=== PATIENT | female | born 1985 | race Hispanic/Latino ===

== ENCOUNTER 2017-02-15 00:38 | Inpatient (IN) | payer OTHER ==
[2017-02-15 00:51] VITALS: BMI 27.7
[2017-02-15] MEDS: Lactated Ringer's 1,000 ML IV SCH ×2 (01:00→02:00)
[2017-02-15] MEDS ORDERED: Lidocaine 1% Inj (20ml) ONE (01:26)
--- NOTE | 2017-02-15 01:36 | OBADHP ---
Datetime: 02/15/2017 01:16 Pelvic Type - PN: Adequate Extremities - PN: Normal Abdomen - PN: Normal Back - PN: Normal Breast - PN: Normal Lungs - PN: Normal Heart - PN: Normal Thyroid - PN: Normal Neurologic - PN: Normal HEENT - PN: Normal General - PN: Normal Presentation-Admit: Vertex FHR - Baseline A Provider: 130 Membranes, Provider: Ruptured Comments, ACOG Physical Exam: HepB, RPR, HIV, neg Rubella immune GBS neg Gestation - Est Wks by US: 39 wk Pool Provider: Positive Vital Signs Provider: Reviewed; Within Normal Limits IP Chief Complaint: Uterine contractions; Suspected ruptured membranes; Maternal discomfort NICHD Variability Prov Fetus A: Moderate 6-25bpm NICHD Accel Fetus A IP Provider: [id number] FHR Category Provider Fetus A: Category I NICHD Decel Fetus A IP Provider: None Dilatation, Provider: 8 Effacement, Provider: 80 Station, Provider: 2 Genitourinary Exam: Normal DTRs - PN: Normal IP Adm Impression: Term, intrauterine IP Admit Plan: Admit to unit; Initiate labor protocol Datetime: 02/15/2017 01:05 Admit Comment, IP Provider: 31 y/o F , VINICIO 02/22/17 comes to the [facility] with CTX and SROM. CTX started around 7pm 1010 in [facility]. SROM at around 12:10am. - positive CTX/LOF/BV and FM PNC: no abnormal labs, Dr. Bobo , [facility] PMH: none PSH:none All: none Med: PNV SH: no alcohol use, smoking or drug use ROS: as per HPI, pt is very discomfortable VS: stable reassuring FHR CTX 8/80%/+2 A/P: 31 y/o F , VINICIO 02/22/17 comes to the [facility] with CTX and SROM. CTX started around 7pm 04/02 in [facility]. SROM at around 12:10am. - admit to unit - epidural - labs - monitor VS and dila - initiate NVD/labor protocol Case discussed with Dr. Graham --- Jocy Dotson, PGY-1 addendum pt seen _ examined by me. agree with assessment and plan.
--- NOTE | 2017-02-15 01:38 | OBADHP ---
Datetime: 02/15/2017 01:05 Presentation-Admit: Vertex
[2017-02-15 01:41] LABS: BASO # 0.1 K/uL (0.0-0.2); BASO % 0.7 % (0.0-2.0); EOS % 0.1 % (0.0-4.0); HEMATOCRIT 37.4 % (34.0-47.0); LYMPH # 1.9 K/uL (1.0-4.3); LYMPH % 14.2 % (20.0-40.0); MEAN CELL VOLUME 90.5 fl (81.0-99.0); MEAN CORPUSCULAR HGB CONC 33.2 g/dL (33.0-37.0); MEAN PLATELET VOLUME 10.3 fl (7.2-11.7); MONO # 0.7 K/uL (0.0-0.8); MONO % 5.1 % (0.0-10.0); NEUT # 10.9 K/uL (1.8-7.0); NEUT % 79.9 % (50.0-75.0); RED CELL DISTRIBUTION WIDTH 13.3 % (11.5-14.5); WHITE BLOOD COUNT 13.6 K/uL (4.8-10.8)
[2017-02-15] MEDS ORDERED: Bupivacaine HCl 0.25% PF (10 ml) Inj ONE (02:04)
[2017-02-15] MEDS ORDERED: Fentanyl/Bupivacaine HCl 250 ML EPI ONE (02:05)
[2017-02-15 02:46] VITALS: RESP 20; O2SAT 100
[2017-02-15] MEDS ORDERED: Oxycodone/Acetaminophen 5/325 mg Tab PO PRN ×3 (05:50→06:17)
[2017-02-15] MEDS ORDERED: Benzocaine/Menthol SPRAY TOP PRN ×2 (05:50→06:17)
--- NOTE | 2017-02-15 05:53 | OBDS ---
DELIVERY PERSONNEL Delivery Doctor: Martinez Ortiz MD Private Sector Executive: Stephanie Scott RN Anesthesiologist: Kelly Pulido MD Resident: STUART Dotson MATERNAL INFORMATION Delivery Anesthesia: Epidural Medications in Delivery: Pitocin Placenta Cultured: No Maternal Complications: None Provider Comments: Over intact perineum, of live female at 5:01am, Weight 3040gm, 9/9 AP GAR. Nuchal cord was noted and reduced. Right Anterior shoulder was delivered first after head delive red in a controlled manner followed by posterior arm and body. Infant was bulb suctioned nasopharyge ally and started crying spontaneously. Cord was clamped. umbilical cord was cut by father. Skin to skin was done with mother. Placenta was delivered intact spontaneously. Repair was done as above. EBL 200cc. patient and baby remained stable in --- Jocy Dotson, PGY-1 LABOR SUMMARY EDC: 02/22/2017 00:00 No. Babies in Womb: 1 Attempted: No Labor Anesthesia: Epidural LABOR INFORMATION Reason for Induction: Not Applicable Onset of Labor: 02/14/2017 22:00 Complete Dilatation: 02/15/2017 03:44 Oxytocin: Augmentation Group B Beta Strep: Negative Antibiotics # of Doses: 0 Steroids Given: None Reason Steroids Not Administered: Not Applicable MEMBRANES Membranes Rupture Method: Spontaneous Rupture of Membranes: 02/15/2017 00:00 Length of Rupture (hrs): 5.02 Amniotic Fluid Color: Clear Amniotic Fluid Amount: Moderate Amniotic Fluid Odor: Normal STAGES OF LABOR Stage 1 hrs: 5 Stage 1 min: 44 Stage 2 hrs: 1 Stage 2 min: 17 Stage 3 hrs: 0 Stage 3 min: 10 Total Time in Labor hrs: 7 Total Time in Labor min: 11 VAGINAL DELIVERY Laceration Extension: Second Degree Laceration Type: Vaginal Laceration Repair: Yes Laceration Repair Note: Repair of second degree perineal laceration with two 3-0 vicryl rapid. Initial Vag Sponge Count: 5 Final Vag Sponge Count: 5 Initial Vag Sharps Count: 2 Final Vag Sharps Count: 2 Sponge Count Correct: Yes Sharps Count Correct: Yes Count Comment: count correct CSECTION DELIVERY Primary Indication: N/A Secondary Indication: N/A CSection Incision: N/A BABY A INFORMATION Delivery Date/Time: 02/15/2017 05:01 Method of Delivery: Vaginal Born in Route : No : N/A Forceps: N/A Vacuum Extraction: N/A Shoulder Dystocia : No SHOULDER DYSTOCIA BABY A Delivery Date/Time: 02/15/2017 05:01 PRESENTATION/POSITION BABY A Presentation: Cephalic Cephalic Presentation: Vertex PLACENTA INFORMATION BABY A Placenta Delivery Time : 02/15/2017 05:11 Placenta Method of Delivery: Spontaneous Placenta Status: Delivered SCORES BABY A Heart Rate 1 min: >100 bpm Resp Effort 1 min: Good Cry Reflex Irritability 1 min: Cough or Sneeze or Pulls Away Muscle Tone 1 min: Active Motion Color 1 min: Body [place], Extremities Blue Resuscitation Effort 1 min: Tactile Stimulation SCORE 1 MIN: 9 Heart Rate 5 min: >100 bpm Resp Effort 5 min: Good Cry Reflex Irritability 5 min: Cough or Sneeze or Pulls Away Muscle Tone 5 min: Active Motion Color 5 min: Body [place], Extremities Blue Resuscitation Effort 5 min: N/A SCORE 5 MIN: 9 INFANT INFORMATION BABY A Gestational Age at Delivery: 39.0 Gestational Status: Term Outcome : Liveborn Infant Condition : Stable Infant Sex: Female IDENTIFICATION/MEDS BABY A ID Band Number: [id number] ID Band Location: Left Leg; Left Arm WEIGHT/LENGTH BABY A Infant Birthweight (gms): 3040 Infant Weight (lb): 6 Infant Weight (oz): 11 CORD INFORMATION BABY A No. Cord Vessels: 3 Nuchal Cord : Around Neck x1, Loose Nuchal Cord Other: n/a True Knot: n/a Cord pH Baby Arterial: n/a Infant Cord pH Baby Venous: n/a Cord Blood Taken: Yes Banking/Donate Info: n/a Suction: Mouth; Nose ASSESSMENT BABY A Infant Complications: None Physical Findings at Delivery: Within Normal Limits Infant Respirations: Appears Normal Charge Account Clerk/ALS Called : No Care By: Deion Transferred To: Remains with Mother
[2017-02-16 07:23] LABS: HEMATOCRIT 29.4 % (34.0-47.0); MEAN CORPUSCULAR HEMOGLOBIN 30.1 pg (27.0-31.0); MEAN CORPUSCULAR HGB CONC 32.7 g/dL (33.0-37.0); RED CELL DISTRIBUTION WIDTH 13.7 % (11.5-14.5); WHITE BLOOD COUNT 15.1 K/uL (4.8-10.8)
--- NOTE | 2017-02-16 08:06 | OBPPN ---
Datetime: 02/16/2017 08:04 PP Pain Prov: Within normal limits PP Nausea Prov: Denies PP Flatus Prov: Yes PP Breasts Prov: Not Done PP Heart Prov: Normal PP Lungs Prov: Normal PP Abdomen/Uterus Prov: Normal PP Lochia Prov: Not Done PP Vulva/Perineum Prov: Not Done PP CVA Tenderness Prov: Normal PP Extremities Prov: Normal PP Impression Prov: Normal progression PP Plan Prov: Continue present management PP Progress Note Prov: Patient overall reports some pelvic discomfort minimal lochia and breast-feed ing taking Motrin with some relief Vital signs stable afebrile Uterus firm below the umbilicus Extremities no Homans day #1 Bed to chair Regular diet Anticipate discharge in am Vital Signs Provider PP: Reviewed
[2017-02-16] MEDS: Oxycodone/Acetaminophen 5/325 mg Tab PO PRN ×2 (08:34→21:30)
--- NOTE | 2017-02-16 19:04 | OBPPN ---
Datetime: 02/16/2017 18:54 PP Progress Note Prov: Called by nurse reg elev bps: 130-150/80-91. s: denies h/a, scotomata, blurred va, ruq pain, n/v. pt states in general she has some anxiety wh ich was increased today with visits from family. she also states she gets more anxious when her bloo d pressure is being taken and she has been having difficulty and feeling anxious about this as well. o: pp platlet 175 I: PP elev bps no evidence of preeclamp. Most likely 2ndary to anxiety p: pt reassured about . pt d/w dr. garcia
[2017-02-17] MEDS: Oxycodone/Acetaminophen 5/325 mg Tab PO PRN (07:51)
--- NOTE | 2017-02-17 12:37 | OBDCSUM ---
Datetime: 02/17/2017 12:26 Discharged to, Provider: Home Follow up at, Provider: DR Jeramie Do Instr Activity: May Shower Disch Instr Diet: Regular Discharge Instructions, Provider: Routine instructions given Discharge Diagnosis, Provider: Term Delivered Discharge Time: 02/17/2017 13:00 Follow up in weeks, Provider: 4-6 weeks Disch Referrals: None Contraception discussed, Prov: Yes Disch Activity Restrictions: No lifting; No sexual activity; Nothing in vagina - [place], tampon s, douche Discharge Comment, Provider: Doing well cleared for discharge Contraception after Delivery: Undecided
[2017-02-17 19:03] VITALS: BP 139/93; PULSE 65; TEMP 98.1
== END 2017-02-17 12:55 | disposition home or self-care (01) | DRG 775 ==
LOC: H.EROB2 00:38 → H.L&D 01:11 → H.OB/GYN 09:07
PROVIDERS: ADMIT Obstetrics & Gynecology Gynecology; ATTEND Obstetrics & Gynecology Gynecology
PROC: 10E0XZZ Delivery of Products of Conception, External Approach (ICD-10-PCS; principal; 2017-02-15)
PROC: 0KQM0ZZ Repair Perineum Muscle, Open Approach (ICD-10-PCS; 2017-02-15)
PROC: 4A1HXCZ Monitoring of Products of Conception, Cardiac Rate, External Approach (ICD-10-PCS; 2017-02-15)
DX: O69.81X0 Labor and delivery complicated by cord around neck, without compression, not applicable or unspecified (principal); F41.9 Anxiety disorder, unspecified; O70.1 Second degree perineal laceration during delivery; Z37.0 Single live birth; Z3A.39 39 weeks gestation of pregnancy